=== PATIENT | female | born 1980 | race African-American/Black ===

== ENCOUNTER 2016-05-14 14:21 | Inpatient (IN) | payer OTHER ==
--- NOTE | ~2016-05-14 | CR63 ---
[facility] A Service of [facility] RADIOLOGY TEXT RESULTS PATIENT: CORRINA FARIAS LOCATION: [facility] 55- : [birth year] UNIT #: [id number] AGE: [address]: Alexsandra Lim MD SEX: F ORDER DR: [id number] [facility] [address] [place], [place] [address] [id number] I MR#: [id number] Acc #: [id number] NAME: CORRINA FARIAS : 1980 SEX: F STUDY DATE/TIME: 05/15/2016 18:38 UNIT: [facility] ROOM: [facility] STUDY DESCRIPTION: CR Chest 2 View Attending Physician: Alexsandra Lim M.D. Ordering Physician: Tiki Bradley M.D. Primary Care Physician: [facility], [facility] MEDICAL IMAGING REPORT This report is preliminary unless electronic signature is present EXAM 2 views chest, 05/15/2016. HISTORY Dyspnea. 3 days duration. Bronchitis, short of air. Increased blood pressure fever, vomiting, seizure. TECHNIQUE PA and lateral radiographs of the chest are presented. COMPARISON 12/14/2009 FINDINGS Bony structures unremarkable. Heart and mediastinum normal in size and contour. The lungs are well inflated bilaterally. No evidence of acute infectious or inflammatory disease, pleural effusion, or pneumothorax. No suspicious nodule. Dictated by... Edmundo Travis M.D. THIS IS AN ELECTRONICALLY VERIFIED REPORT Edmundo Travis M.D. at 05/18/2016 6:09 PM [place] TD: 05/16/2016 15:23 JOB #: [id number] MEDICAL IMAGING REPORT Page 1 of 1 COPY
--- NOTE | ~2016-05-14 | US6 ---
[facility] A Service of [facility] RADIOLOGY TEXT RESULTS PATIENT: CORRINA FARIAS LOCATION: [facility] 556-01 : [birth year] UNIT #: [id number] AGE: [address]: Alexsandra Lim MD SEX: F ORDER DR: [id number] [facility] [address] [place], [place] [address] [id number] I MR#: [id number] Acc #: [id number] NAME: CORRINA FARIAS : 1980 SEX: F STUDY DATE/TIME: 05/14/2016 17:49 UNIT: CED ROOM: [id number] STUDY DESCRIPTION: US Abdominal Limited Attending Physician: Tiki Bradley M.D. Ordering Physician: Tiki Bradley M.D. Primary Care Physician: [facility], [facility] MEDICAL IMAGING REPORT This report is preliminary unless electronic signature is present EXAM Abdomen ultrasound limited HISTORY Pancreatitis, abdominal pain for 1 day with nausea, vomiting and diarrhea. COMMENT Real-time ultrasonography of the right upper quadrant was performed with 2-D forman-scale imaging and limited color-flow Doppler imaging. There is a CT abdomen and pelvis for comparison from earlier today. Please refer to that study as well. On the ultrasound, the pancreas is not seen well. Proximally it is unremarkable but distally it is obscured by overlying bowel gas. Liver is normal in size. The main portal vein is patent with hepatopetal flow. Inferior vena cava is unremarkable. Sonographic penetration of the liver is limited. Please correlate for any clinical concern for fatty infiltration of the liver. Echotexture is probably mildly coarsened. Right kidney measures 9.9 x 3.4 x 4.4 cm and the cortical thickness is about 9 mm. There is no hydronephrosis. No focal mass or shadowing calculus is suspected. The gallbladder is unremarkable. There is no gallstone, gallbladder wall thickening or pericholecystic fluid. The common duct measures 2 mm which is normal. IMPRESSION 1. No evidence for gallstone, gallbladder wall thickening, pericholecystic fluid or biliary ductal dilatation. 2. Possible fatty infiltration of the liver. Please correlate clinically. 3. Visualized pancreas is unremarkable but much of the pancreas is obscured by overlying bowel gas. Please refer back to the earlier CT scan from today. Dictated by... Denise Douglas M.D. [facility] A Service of [facility] RADIOLOGY TEXT RESULTS PATIENT: CORRINA FARIAS LOCATION: [place] [address] : [birth year] UNIT #: [id number] AGE: [address]: Alexsandra Lim MD SEX: F ORDER DR: THIS IS AN ELECTRONICALLY VERIFIED REPORT Denise Douglas M.D. at 05/15/2016 8:50 PM DANA/rnr TD: 05/15/2016 04:31 JOB #: [id number] MEDICAL IMAGING REPORT Page 1 of 1 COPY
--- NOTE | ~2016-05-14 | HP ---
Unit #: [id number] #: [id number] Patient: CORRINA FARIAS [id number] [facility] [address] [place], [place] [address] [id number] I MR#: [id number] NAME: CORRINA FARIAS ROOM: [id number] Age: 36 Sex: F Admission Date: 05/14/2016 : 1980 Attending Physician: Tiki Bradley M.D. Primary Care Physician: [facility], [facility] HISTORY AND PHYSICAL CHIEF COMPLAINT Abdominal pain. HISTORY OF PRESENT ILLNESS The patient is a 36-year-old female with past medical history of seizure disorder, anxiety, who presented to the emergency department for evaluation of the above. The patient states that she has not been feeling well since yesterday. She reports chills and undocumented fever. She states that she has had a nonproductive cough. She also has abdominal pain that she describes as "everywhere." She describes it as "burning." There are no exacerbating or alleviating factors. She has had more than 10 bouts of nonbloody emesis in the past 24 hours. She has also had loose stool. She denies any urinary symptoms. In the emergency department, CT of the abdomen and pelvis was done and showed nothing acute. Laboratory is notable for a lipase of 160. Urinalysis showed findings concerning for urinary tract infection. White blood cell count is 22.9. She is being admitted to [facility] for evaluation and further treatment. PAST MEDICAL HISTORY 1. Admission to [facility] 12/14/2009 for syncope. 2. Seizure disorder maintained on Keppra and Topamax. Her last seizure was possibly yesterday. She states that she has been vomiting so she is not sure if she has been able to keep her medications down. She is followed by [facility]. 3. Anxiety. PAST SURGICAL HISTORY 1. . 2. Tubal ligation. HOME MEDICATIONS Include: 1. Keppra 1500 mg b.i.d. 2. Topamax. SOCIAL HISTORY The patient quit smoking. She reports occasional alcohol use. FAMILY HISTORY Notable for her mother having hypertension. Her father has hypertension Unit #: [id number] #: [id number] Patient: CORRINA FARIAS and diabetes. PHYSICAL EXAMINATION VITAL SIGNS: Temperature 98.7, pulse 81, respirations 16, blood pressure 138/96, oxygen saturation is 100% on room air. GENERAL: The patient is an female who is awake and alert in no acute distress. HEENT: Head is atraumatic. Mucous membranes are dry. NECK: Supple. Trachea is midline. LUNGS: Clear to auscultation bilaterally with no increased work of breathing. HEART: Regular rate and rhythm. ABDOMEN: Soft. She is tender to palpation in the epigastric area. Bowel sounds present in all four quadrants. EXTREMITIES: Nontender with no pedal edema. NEUROLOGIC: Patient is awake and alert. She follows commands. PSYCHIATRIC: Mood and affect are normal. Patient is cooperative. SKIN OF EXAMINED AREAS: Warm and dry. DIAGNOSTIC STUDIES LABORATORY: Rapid flu screen is negative. Comprehensive metabolic panel notable for a bicarb of 21, glucose 125, alkaline phosphatase 101, lipase 160. Complete blood count notable for white blood cell count of 22.9. Urinalysis notable for trace leukocyte esterase, 1+ protein, 5-10 wbc's, 1+ bacteria. IMAGING: CT abdomen and pelvis shows nothing acute. ASSESSMENT The patient is a 36-year-old female with: 1. Acute pancreatitis. 2. Urinary tract infection. 3. Leukocytosis. 4. Seizure disorder maintained on Keppra and Topamax. 5. Anxiety. 6. Former smoker. PLAN 1. Admit to intermediate level. 2. N.p.o. except ice chips. 3. Normal saline at 125 mL per hour. 4. P.r.n. Zofran. 5. P.r.n. Toradol. 6. Right upper quadrant ultrasound for further evaluation of pancreatitis. 7. Fasting lipid panel. 8. Urine culture and sensitivity on urine in the lab. 9. Blood cultures x2. 10. Rocephin for urinary tract infection pending further workup. 11. Change Keppra to IV. 12. Repeat labs in the morning including amylase and lipase. 13. SCDs. 14. Protonix. 15. Additional workup and consultants based on above. Unit #: [id number] #: [id number] Patient: CORRINA FARIAS Dictated by Tiki Bradley M.D. CURT/yesenia TD: 05/14/2016 20:58 JOB #: [id number] HISTORY AND PHYSICAL Page 1 of 1 X Tiki Bradley MD HISTORY AND PHYSICAL
--- NOTE | ~2016-05-14 | CR212 ---
[facility] A Service of [facility] RADIOLOGY TEXT RESULTS PATIENT: CORRINA FARIAS LOCATION: [facility] 55- : 82 UNIT #: [id number] AGE: [address]: Alexsandra Lim MD SEX: F ORDER DR: [id number] [facility] [address]. [place], [place] [address] [id number] I MR#: [id number] Acc #: [id number] NAME: CORRINA FARIAS : 1980 SEX: F STUDY DATE/TIME: 05/16/2016 9:45 UNIT: [facility] ROOM: [facility] STUDY DESCRIPTION: CR Ribs Unilateral 2 View Lt Attending Physician: Alexsandra Lim M.D. Ordering Physician: Alexsandra Lim M.D. Primary Care Physician: [facility], [facility] MEDICAL IMAGING REPORT This report is preliminary unless electronic signature is present EXAM Left ribs. INDICATION Left-sided rib and chest pain for 4 days. FINDINGS PA view of the chest and oblique views of the left ribs compared to 05/15/2016. Heart and mediastinal contours are normal. Lungs are clear. No displaced fractures. IMPRESSION No displaced rib fractures. Dictated by... Sean Weinstein M.D. THIS IS AN ELECTRONICALLY VERIFIED REPORT Sean Weinstein M.D. at 05/17/2016 2:11 PM MARGOT/evangelina TD: 05/16/2016 18:13 JOB #: [id number] MEDICAL IMAGING REPORT Page 1 of 1 COPY
--- NOTE | ~2016-05-14 | DS ---
Unit #: [id number] #: [id number] Patient: CORRINA FARIAS [id number] [address] [place], [place] [address] [id number] I MR#: [id number] NAME: CORRINA FARIAS ROOM: 55 Age: 36 Sex: F Admission Date: 05/14/2016 : 1980 Discharge Date: 05/16/2016 Attending Physician: Alexsandra Lim M.D. Primary Care Physician: [facility] DISCHARGE SUMMARY DISCHARGE DIAGNOSES 1. Cannabis hyperemesis syndrome. 2. Seizure disorder. 3. Anxiety. 4. Pancreatitis. HOSPITAL COURSE The patient is a 36-year-old female, who presents to [facility] Emergency Department secondary to abdominal pain. Apparently, she had been having emesis for 24 hours prior and had approximately 10 episodes prior to admission. The patient was initially thought to have pancreatitis and was made n.p.o., except ice chips. At the time of this dictation, she has tolerated a regular diet without difficulty. She is actually requesting discharge home as she has children to take care of. Over the course of her admission, the emesis continued. The patient stated that the only thing that made her feel better was to take a shower and indeed spent most of her admission in the shower. This seems fairly pathognomonic for cyclic nausea and vomiting associated with cannabis use. Discussion with patient reveals that she does smoke marijuana regularly to help with her nerves. She has been counseled to reduce if not completely stop her marijuana smoking. Given her tolerance for a diet and explanation for her vomiting, the patient is being discharged home at her request. DISCHARGE MEDICATIONS Keppra 1500 mg p.o. b.i.d., Topamax 100 mg p.o. b.i.d., promethazine 25 mg per rectum q.4 hours p.r.n. nausea, Ativan 0.5 mg p.o. b.i.d. p.r.n. anxiety. FOLLOWUP I have asked the patient to follow up with her neurologist, Dr. Brizuela at the earliest available appointment. Dictated by... Ulises Jackson M.D. NADEEM/modmatti Unit #: [id number] #: [id number] Patient: CORRINA FARIAS TD: 05/17/2016 01:17 JOB #: [id number] DISCHARGE SUMMARY Page 1 of 1 X Ulises Jackson MD X DISCHARGE SUMMARY
--- NOTE | ~2016-05-14 | CT2 ---
[facility] A Service of [facility] RADIOLOGY TEXT RESULTS PATIENT: CORRINA FARIAS LOCATION: [facility] 556-01 : [birth year] UNIT #: [id number] AGE: [address]: Alexsandra Lim MD SEX: F ORDER DR: [id number] [facility] [address]. [place], [place] [address] [id number] MR#: [id number] Acc #: [id number] NAME: CORRINA FARIAS : 1980 SEX: F STUDY DATE/TIME: 05/14/2016 15:27 UNIT: TOM ROOM: STUDY DESCRIPTION: CT Abd and Pelv W Cont Attending Physician: Anthony Zuleta M.D. Ordering Physician: Leann Dodd M.D. Primary Care Physician: [facility], [facility] MEDICAL IMAGING REPORT This report is preliminary unless electronic signature is present EXAM CT of the abdomen and pelvis with contrast. DATE OF EXAM 05/14/2016 INDICATIONS 36-year-old female with vomiting since yesterday. Unable to keep medications down, feeling light-headed. TECHNIQUE CT abdomen and pelvis was performed following the administration of IV contrast. Coronal and sagittal reformatted images obtained. NOTE: This CT exam was performed with one or more of the following radiation dose reduction techniques: automatic exposure control, adjustment of mA and/or kV according to patient size, and iterative reconstruction. COMPARISON Comparison is made with 06/24/2011 FINDINGS Lung bases are clear. Small amount of focal fatty infiltration of the liver adjacent to the falciform ligament. The gallbladder is normal. The spleen is normal. The kidneys, adrenal glands and pancreas are normal. PELVIS: Trace free fluid, likely physiologic. Physiologic ovarian cyst. The colon is unremarkable. The appendix is normal. Small rounded area of soft tissue attenuation anterior to the left lower rectus muscle is indeterminate. There may be some scarring from prior surgery or related to medication injection. It is of doubtful clinical significance. Bone windows are unremarkable. IMPRESSION [facility] A Service [facility] RADIOLOGY TEXT RESULTS PATIENT: CORRINA FARIAS LOCATION: [facility] 556-01 : [birth year] UNIT #: [id number] AGE: [address]: Alexsandra Lim MD SEX: F ORDER DR: 1. Normal gallbladder. 2. Normal appendix. 3. No evidence of bowel obstruction. 4. No acute abnormality. Dictated by... Matty Varma M.D. THIS IS AN ELECTRONICALLY VERIFIED REPORT Matty Varma M.D. at 05/17/2016 11:54 AM SYED/suma TD: 05/14/2016 19:23 JOB #: [id number] MEDICAL IMAGING REPORT Page 1 of 1 COPY
[2016-05-14 13:35] LABS: INFLUENZA A NEG (NEG); INFLUENZA B NEG (NEG)
[2016-05-14 13:50] LABS: BASOPHIL# 0.1 X10e3 (0-0.3); BASOPHIL% 0.3 % (0-2.5); HEMOGLOBIN 13.1 gm/dL (12.0-16.0); LYMPHOCYTE# 2.1 X10e3 (1.0-3.5); LYMPHOCYTE% 9.2 % (17.0-45.0); MEAN CORPUSCULAR HEMOGLOBIN 25.8 PG (28-34); MEAN CORPUSCULAR HGB CONC 31.1 g/dL (30-36); MEAN PLATELET VOLUME 10.2 FL (6.5-11.5); MONOCYTE# 0.8 X10e3 (0-1.0); MONOCYTE% 3.4 % (3.0-12.0); NEUTROPHIL# 19.9 X10e3 (1.5-7.1); NEUTROPHIL% 87.1 % (40-75); PLATELET COUNT 356 X10e3 (140-420); RED BLOOD COUNT 5.06 X10e (3.90-5.30); RED CELL DISTRIBUTION WIDTH 14.4 % (11.0-15.5); WHITE BLOOD COUNT 22.9 X10e3 (4.0-10.5)
[2016-05-14 13:52] LABS: DIFF IND YES
[2016-05-14 13:58] LABS: ALBUMIN SERUM 4.8 g/dL (3.5-5.0); BILIRUBIN, DIRECT 0.1 mg/dL (0.0-0.2); BILIRUBIN,INDIRECT 0.6 mg/dL (0.0-0.9); BILIRUBIN,TOTAL 0.7 mg/dL (0.2-2.0); BUN/CREATININE RATIO 16.66; CALCIUM SERUM 10.2 mg/dL (8.4-10.2); CREATININE SERUM 0.9 mg/dL (0.6-1.4); GLOM FILT RATE Estimated 96.1 mL/min (>60); POTASSIUM 3.6 mmol/L (3.5-5.1); PROTEIN TOTAL SERUM 8.8 g/dL (6.0-8.3)
[2016-05-14 14:14] LABS: PLATELET ESTIMATE NORMAL (NORMAL)
[2016-05-14 14:15] LABS: RBC NORMAL YES
[2016-05-14 14:18] LABS: URINE SOURCE CLEAN CATCH
[~2016-05-14 14:21] MED LIST: ACETAMINOPHEN PO; BACLOFEN20 M1 PO; BACTRIM DS TABL1 TA1 PO; BENADRYL25 MG PO; CIPRO PO; HYDROCODON-ACE1 EAC1 PO; KEFLEX250 M1 PO; KEPPRA500 MG PO; NAPROXEN250 MG PO; PHENERGAN25 MG PO; TYLOX 5-500 CA1 EACH PO; VICODIN 5/1 TAB 5/50 PO
[2016-05-14 14:23] LABS: URINE APPEARANCE CLOUDY; URINE BILIRUBIN NEG (NEG); URINE BLOOD NEG (NEG); URINE COLOR DK YELLOW; URINE GLUCOSE NEG (NEG); URINE KETONE 2+ (NEG); URINE LEUKOCYTE ESTERASE TRACE (NEG); URINE NITRATE NEG (NEG); URINE PH 5.5 (5-8); URINE PROTEIN 1+ (NEG); URINE SPECIFIC GRAVITY 1.036 (1.003-1.035)
[2016-05-14 14:25] LABS: CULTURE INDICATED? YES; URINE BACTERIA AUWI 1+ (NEGATIVE); URINE SQUAMOUS EPITHELIAL CELL FEW /[HPF]
[2016-05-14 14:37] LABS: URINE MUCUS PRESENT
[2016-05-14] MEDS ORDERED: KEPPRA1000 MG PO (17:10)
[2016-05-15 06:14] LABS: HEMATOCRIT 38.1 % (35.0-45.0); MEAN CELL VOLUME 83.3 FL (83-96); MEAN CORPUSCULAR HEMOGLOBIN 26.2 PG (28-34); MEAN CORPUSCULAR HGB CONC 31.4 g/dL (30-36); MEAN PLATELET VOLUME 9.8 FL (6.5-11.5); RED BLOOD COUNT 4.57 X10e (3.90-5.30); RED CELL DISTRIBUTION WIDTH 14.4 % (11.0-15.5)
[2016-05-15 07:26] LABS: ALBUMIN SERUM 3.9 g/dL (3.5-5.0); BILIRUBIN,TOTAL 0.5 mg/dL (0.2-2.0); CALCIUM SERUM 9.1 mg/dL (8.4-10.2); CREATININE SERUM 0.7 mg/dL (0.6-1.4); GLOM FILT RATE Estimated 130.1 mL/min (>60); POTASSIUM 3.3 mmol/L (3.5-5.1); PROTEIN TOTAL SERUM 6.9 g/dL (6.0-8.3)
[2016-05-15] MEDS ORDERED: TOPAMAX PO (21:05)
[2016-05-16 08:28] LABS: BASOPHIL# 0.1 X10e3 (0-0.3); BASOPHIL% 0.5 % (0-2.5); DIFF IND NO; EOSINOPHIL% 0.2 % (0.0-7.0); HEMATOCRIT 35.1 % (35.0-45.0); HEMOGLOBIN 11.3 gm/dL (12.0-16.0); LYMPHOCYTE% 17.7 % (17.0-45.0); MEAN CELL VOLUME 81.7 FL (83-96); MEAN CORPUSCULAR HEMOGLOBIN 26.2 PG (28-34); MEAN CORPUSCULAR HGB CONC 32.1 g/dL (30-36); MEAN PLATELET VOLUME 9.5 FL (6.5-11.5); MONOCYTE% 6.1 % (3.0-12.0); NEUTROPHIL# 12.7 X10e3 (1.5-7.1); NEUTROPHIL% 75.5 % (40-75); PLATELET COUNT 283 X10e3 (140-420); RED CELL DISTRIBUTION WIDTH 14.3 % (11.0-15.5); WHITE BLOOD COUNT 16.8 X10e3 (4.0-10.5)
[2016-05-16 08:57] LABS: ALBUMIN SERUM 3.6 g/dL (3.5-5.0); BILIRUBIN,TOTAL 0.7 mg/dL (0.2-2.0); BUN/CREATININE RATIO 14.28; CALCIUM SERUM 8.8 mg/dL (8.4-10.2); CREATININE SERUM 0.7 mg/dL (0.6-1.4); GLOM FILT RATE Estimated 130.1 mL/min (>60); PROTEIN TOTAL SERUM 6.9 g/dL (6.0-8.3)
[2016-05-16 09:08] LABS: POTASSIUM 2.8 mmol/L (3.5-5.1)
[2016-05-16 18:29] LABS: BILIRUBIN,TOTAL 0.6 mg/dL (0.2-2.0); BUN/CREATININE RATIO 15.71; CALCIUM SERUM 9.2 mg/dL (8.4-10.2); CREATININE SERUM 0.7 mg/dL (0.6-1.4); GLOM FILT RATE Estimated 130.1 mL/min (>60); POTASSIUM 3.1 mmol/L (3.5-5.1); PROTEIN TOTAL SERUM 7.5 g/dL (6.0-8.3)
[2016-05-16] MEDS ORDERED: PROMETHAZI PR (19:22)
[2016-05-16] MEDS ORDERED: ATIVAN0.5 MG PO (19:23)
== END 2016-05-16 21:00 | disposition home or self-care (01) | DRG 897 ==
LOC: CED 14:21 → CEDOF 17:00 → C5B 05-15 17:49
PROVIDERS: Emergency Medicine; Family Medicine
DX: F12.988 Cannabis use, unspecified with other cannabis-induced disorder (principal); F41.9 Anxiety disorder, unspecified; G40.909 Epilepsy, unspecified, not intractable, without status epilepticus; Z71.51 Drug abuse counseling and surveillance of drug abuser; Z98.51 Tubal ligation status; Z87.891 Personal history of nicotine dependence; Z82.49 Family history of ischemic heart disease and other diseases of the circulatory system; Z83.3 Family history of diabetes mellitus; R11.2 Nausea with vomiting, unspecified
CPT/HCPCS: 36415; 71020; 71100; 74177; 76705; 80048; 80053; 80061; 80076; 81003; 82150; 82947; 83690; 83735; 85025; 85027; 85379; 87040; 87086; 87804; 96361; 96374; 96375; 99284; 99285; C9113; J0360; J0696; J1650; J1885; J1953; J2405; J2550; J2765; Q9967